=== PATIENT | male | born 1965 | race Caucasian/White ===

== ENCOUNTER 2018-03-28 11:09 | Day surgery (SDC) | payer BC, OTHER ==
[2018-03-21 16:18] VITALS: BMI 34.9
[2018-03-28] MEDS ORDERED: PROPOFOL 20 ML ONE ×2 (11:12)
[2018-03-28 12:16] VITALS: TEMP 98.3
[2018-03-28 12:36] VITALS: PULSE 78
[2018-03-28 12:38] VITALS: BP 142/80
== END 2018-03-28 12:38 | disposition home or self-care (01) ==
LOC: FASU-ENDO 11:09
PROVIDERS: ATTEND Internal Medicine Gastroenterology
PROC: 0DJD8ZZ Inspection of Lower Intestinal Tract, Via Natural or Artificial Opening Endoscopic (ICD-10-PCS; principal; 2018-03-28 11:40)
DX: Z86.010 Personal history of colon polyps (principal); Z80.0 Family history of malignant neoplasm of digestive organs; K64.1 Second degree hemorrhoids
CPT/HCPCS: 82962

== ENCOUNTER 2022-10-19 04:19 | Day surgery (SDC) | payer BC ==
[2022-10-14 15:46] VITALS: BMI 33.4
[2022-10-19 10:57] VITALS: PULSE 58; TEMP 98
[2022-10-19 11:31] VITALS: BP 120/61; RESP 16
== END 2022-10-19 11:53 | disposition home or self-care (01) ==
LOC: JASU-ENDO 04:19
PROVIDERS: ATTEND Student in an Organized Health Care Education/Training Program
PROC: 0DJD8ZZ Inspection of Lower Intestinal Tract, Via Natural or Artificial Opening Endoscopic (ICD-10-PCS; principal; 2022-10-19 10:00)
DX: Z86.010 Personal history of colon polyps (principal)
CPT/HCPCS: 82962